=== PATIENT | female | born 1935 | race Caucasian/White ===

== ENCOUNTER 2017-05-16 19:21 | Inpatient (IN) | payer MEDICARE, MEDICAID ==
[~2017-05-16] VITALS: Ht 157.5 cm; Wt 70.3 kg
--- NOTE | ~2017-05-16 | PR ---
[place], [place] PROGRESS NOTE NAME: SHIREEN KELSEY UNIT #: [id number] ROOM: 311 DOCTOR: ODALIS GONZALEZ MD BIRTHDATE: [birth year] DOS: 05/18/2017 CHIEF COMPLAINT: "I don't know what I am going to do about going back to that place. It is my home though I want to go back." SUMMARY OF THE VISIT: The patient was interviewed as she rested quietly in bed. She reported to me that she did not want to get out of bed and get breakfast that she was not a morning person. She continued to focus on all of the negative things that were happening at [facility] and was upset that that particular staff member is tormenting her. She, however, does not see any way around returning there and is very specific that is that 1 particular staff member that seems to be tormenting her. She remains grossly paranoid and delusional and depressed. She is tolerating the medicines well and has been compliant here with the medication regimen. MENTAL STATUS: She is alert and oriented with some time gaps. Mood does still seem to be depressed with anxious overtones and she voices significant paranoia. PLAN: I will go ahead and increase her Risperdal from 0.5 mg twice a day to 0.5 mg in the morning and 1 mg at bedtime. Maintain the Remeron at 15 mg at bedtime. Continue to engage in individual and pederson milieu activity with the plan ultimately to return back to [facility]. ODALIS GONZALEZ MD CM:PNTRANS [id number] ODALIS GONZALEZ MD 05/19/17 0445 interface
--- NOTE | ~2017-05-16 | WRIGHTHP ---
[place], [place] PATIENT HISTORY AND PHYSICAL EXAM NAME: SHIREEN KELSEY UNIT #: [id number] ROOM: 311 DOCTOR: ODALIS GONZALEZ MD BIRTHDATE: [birth year] DOS: 05/17/2017 INITIAL PSYCHIATRIC EVALUATION CHIEF COMPLAINT: "That one worker has it in for me. It has been like that ever since I moved into that place." HISTORY OF PRESENT ILLNESS: This is an 81-year-old white female who is a resident of [facility]. The patient is admitted now due to worsening depression with psychotic features. The patient has become very paranoid and believes that a select female staff member is deliberately trying to hurt her. She states that the staff member lives there at the facility in an apartment above her and has been doing things deliberately to hurt her including piping in noxious gas that is making her feel sick. At one point, she is said it was poisonous gas and then she retracted that. The patient has not been sleeping well at night because she is fearful. She has not been eating or attending to her ADLs. She is admitted now to rule out organic factors and to attempt to stabilize on medication. PAST MEDICAL HISTORY: Remarkable for allergies to SULFA AND PENICILLIN. Past medical history also remarkable for hypertension, hyperlipidemia, hypothyroidism, seasonal allergies and emphysema. MENTAL STATUS: The patient is alert and oriented to person, place and approximate to time. Mood is depressed with anxious overtones. There is also a significant amount of paranoia and delusions. Memory is relatively intact. DIAGNOSIS: Major depression, recurrent with psychotic features. PLAN: I have already started her on Remeron 15 mg at bedtime. I will start risperidone 0.5 mg twice a day. Screening examination showed her to have a low vitamin D level, so I will augment with vitamin D, engage in individual and pederson milieu activity, returning home when stable. [place], [place] PATIENT HISTORY AND PHYSICAL EXAM NAME: SHIREEN KELSEY UNIT #: [id number] ROOM: 311 DOCTOR: ODALIS GONZALEZ MD BIRTHDATE: [birth year] ODALIS GONZALEZ MD CM:HISPHYS:PATIENT HISTORY AND PHYSICAL EXAMINATION [id number] ODALIS GONZALEZ MD 05/17/17 1535 interface
--- NOTE | ~2017-05-16 | DS ---
[place], [place] DISCHARGE SUMMARY NAME: SHIREEN KELSEY UNIT #: [id number] ROOM: 311 DOCTOR: ODALIS GONZALEZ MD BIRTHDATE: [birth year] DOS: 05/21/2017 CHIEF COMPLAINT: "That one worked has it in for me, it has been like that ever since I moved into the place." HISTORY OF PRESENT ILLNESS: This is an 81-year-old white female who is a resident of [facility]. The patient is admitted now due to worsening depression with psychotic features. The patient has become very paranoid and believes that a select female staff member is deliberately trying to hurt her. She states that the staff member lives there at the facility in an apartment above her, no such apartment exists. She also feels that they are piping in noxious poisonous gas in her apartment to make her feel sick. She has reacted to this poisonous gas in the past. She has not been sleeping well at night because she is so fearful. She has been episodically noncompliant with her medications as well. She is admitted now to rule out organic factors in attempt to stabilize on medication with the ultimate plan to return back to [facility]. PAST MEDICAL HISTORY: Remarkable for allergies to SULFA and PENICILLIN. She also has a history of hypertension, hyperlipidemia, hypothyroidism, seasonal allergies and emphysema. SUMMARY OF HOSPITAL COURSE: The patient was started on Remeron SolTab 15 mg at bedtime and Risperdal 0.5 mg twice a day was added to combat the psychosis. The patient was actually compliant with her medicines here in the hospital. She did have a rapid stabilization in her sleep. Some of the paranoia persisted, but overall there was a steady trend in improvement. She was able to engage readily in individual and group activities. She voiced positive plans for the future and she was very anxious to return back to her apartment feeling that she could put up with what has been going on and ignore the behavior. This is in rodrigues contrast to admission when she felt that she was not able to ignore it. She convincingly denied suicidal, homicidal or self-injurious thoughts as well as convincingly denying any type of side effects from the medicines themselves. MENTAL STATUS AT DISCHARGE: The patient is alert and oriented to person, place and time. Mood is strongly trending towards euthymia. Affect is much more appropriate. There is no symptom suggestive of sadie or hypomania; likewise there are no overt auditory or visual hallucinations. No delusions, no paranoia. Short, intermediate and long-term memories are fully intact. FINAL DIAGNOSES: Major depression, recurrent with psychotic features. PLAN: All of her prescriptions have been printed and will be sent with her. She is returning to [facility]. [place], [place] DISCHARGE SUMMARY NAME: SHIREEN KELSEY UNIT #: [id number] ROOM: [facility] DOCTOR: ODALIS GONZALEZ MD BIRTHDATE: [birth year] ODALIS GONZALEZ MD CM:DISCHARG 4 7 ODALIS GONZALEZ MD 05/21/17916 interface
--- NOTE | ~2017-05-16 | PR ---
[place], [place] PROGRESS NOTE NAME: SHIREEN KELSEY UNIT #: [id number] ROOM: 311 DOCTOR: ODALIS GONZALEZ MD BIRTHDATE: [birth year] DOS: 05/19/2017 CHIEF COMPLAINT: "Do I get to go home, I need to take care of my bird, no one can take care of my bird like I can." SUMMARY OF THE VISIT: The patient was interviewed as she was attending to her ADLs in her room. She stopped and engaged readily in conversation. She was fixated on being able to leave. When I did tell her that I was concerned for her returning to a situation in which she was so fearful, she looked rather perplexed and bewildered at me and on the contrary stated that there is only 1 person that has her mildly upset there and that she loves the facility and cannot wait to return home. This seems to be lessening from her initial stance that she was being tortured repeatedly by multiple sources at the particular assisted living. She has been compliant with her medication and we may be seeing some positive effects from the medicines already. She did report slightly better sleep with the current medication regimen as well and notes no somnolence or other side effects this morning. MENTAL STATUS: She is alert and oriented to person, place and time. Mood does seem to be trending towards euthymia. Affect is more appropriate. The paranoia seems now to be dissipating and lessening towards one particular source. There are no overt auditory or visual hallucinations. No delusions other than the paranoia are noted. For the most part, memory is intact. PLAN: I will maintain her current dose of Remeron and Risperdal. Continue to monitor for risk, benefit, engage in individual and pederson milieu activity with the plan to return to when stable. ODALIS GONZALEZ MD CM:PNTRANS [id number] ODALIS GONZALEZ MD 05/19/17 1238 interface
--- NOTE | 2017-05-16 19:50 | NUR ---
DR GONZALEZ NOTIFIED OF ADMISSION BEING EN ROUTE FROM [facility] WITH ORDERS RECEIVED.
[2017-05-16 20:30] VITALS: BP 150/80
[2017-05-16] MEDS ORDERED: REMERON15 M2 PO (21:00)
[2017-05-16 21:19] LABS: BILIRUBIN NEGATIVE (NEGATIVE); BLOOD NEGATIVE (NEGATIVE); CLARITY SL CLOUDY (CLEAR); COLOR YELLOW (YELLOW); GLUCOSE NEGATIVE (NEGATIVE); KETONE NEGATIVE (NEGATIVE); LEUKO ESTERASE TRACE (NEGATIVE); NITRITE NEGATIVE (NEGATIVE); PH 5.5 (5.0-9.0); UROBILINOGEN 0.2 E.U./dl (0.2-1.0)
[2017-05-16] MEDS ORDERED: LEVOTHYROXINE50 MCG PO (21:21)
[2017-05-16] MEDS ORDERED: DIOVAN HCT 1601 EACH PO (21:25)
[2017-05-16] MEDS ORDERED: ATORVASTATIN CA10 M1 PO (21:26)
--- NOTE | 2017-05-16 21:26 | NUR ---
URINE OBTAINED & SENT TO LAB. LAB STAFF ON UNIT AT THIS TIME DRAWING BLOOD WORK.
[2017-05-16] MEDS ORDERED: CEROVITE SENIO1 EACH PO (21:27)
[2017-05-16] MEDS ORDERED: METOPROLOL SUCC50 M2 PO (21:28)
[2017-05-16 21:29] LABS: BACTERIA 1+; EPITHELIAL CELLS 0-2
[2017-05-16] MEDS ORDERED: SYMB160 PO (21:30)
[2017-05-16] MEDS ORDERED: POTASSIUM CHLO20 ME3 PO (21:31)
[2017-05-16] MEDS ORDERED: ROBITUSSIN DM 101 OZ PO (21:36)
[2017-05-16] MEDS ORDERED: Zofran4 MG PO (21:37)
[2017-05-16] MEDS ORDERED: DOCUSOFT-S100 MG PO (21:39)
[2017-05-16] MEDS ORDERED: PROAIR HFA8.5 GM INH (21:41)
[2017-05-16] MEDS ORDERED: PHAZYME180 MG PO (21:44)
[2017-05-16] MEDS ORDERED: CLARITIN10 MG PO (21:44)
--- NOTE | 2017-05-16 21:44 | NUR ---
SHIREEN KELSEY a 81 year old F admitted via wheel chair with 1 male staff from [employer] [facility] from [email or web address] as a voluntary admission per legal JOSE DANIEL CHAPA GOVERNOR Arrived on unit at 2024. ALLERGIES: PCN,SULFA,CODEINE,IVP DYE,PHOSPHATE,CLARITIN-D ALBUTEROL. Vital signs are: 98.7-85-18 150/80 A search was conducted and hazardous articles were removed. Client was oriented to the unit. DEEPAK VILLEGAS
[2017-05-16] MEDS ORDERED: TYLENOL325 M1 PO (21:46)
[2017-05-16] MEDS ORDERED: ARTIFICIAL TEA1 EACH OP (21:47)
[2017-05-16] MEDS ORDERED: MOM30 M1 PO (21:48)
[2017-05-16] MEDS ORDERED: MAALOX ADVANCE355 M1 PO (21:48)
[2017-05-16 22:00] LABS: BASO # 0.1 10*3/uL (0.0-0.1); BASO % 0.8 % (0.0-1.0); EOS # 0.5 10*3/uL (0.0-0.4); EOS % 6.7 % (1.0-4.0); HEMATOCRIT 40.9 % (37.0-47.0); HEMOGLOBIN 13.8 g/dl (12.0-16.0); LYMPH # 1.5 10*3/uL (1.3-4.4); LYMPH % 18.7 % (27.0-41.0); MEAN CELL VOLUME 94.7 fl (81.0-99.0); MEAN CORPUSCULAR HGB 31.9 pg (27.0-31.0); MEAN CORPUSCULAR HGB CONC 33.7 g/dl (33.0-37.0); MEAN PLATELET VOLUME 8.7 fl (9.6-12.3); MONO # 0.8 10*3/uL (0.1-1.0); MONO % 9.7 % (3.0-9.0); NEUT # 5.1 10*3/uL (2.3-7.9); NEUT % 63.8 % (47.0-73.0); PLATELET COUNT AUTOMATED 295 10*3/uL (130-400); RED BLOOD COUNT 4.32 10*6/uL (4.10-5.10); RED CELL DISTRI WIDTH 12.4 % (0-14.5); WHITE BLOOD COUNT 7.9 10*3/uL (4.8-10.8)
--- NOTE | 2017-05-16 22:00 | NUR ---
DR Torie JOLE IS COVERING FOR DR HARVEY. NOTIFIED OF ADMISSION. MEDICATION REC IS READY FOR REVIEW.
[2017-05-16 22:20] LABS: ALBUMIN 3.7 gm/dl (3.1-4.5); ALKALINE PHOSPHATASE 76 U/L (45-117); BUN 14 mg/dl (7-24); CHLORIDE 102 mmol/L (98-107); CREATININE 0.93 mg/dL (0.55-1.02); POTASSIUM 4.2 mmol/L (3.5-5.1); SGOT/AST 16 IU/L (3-35); SGPT/ALT 19 U/L (12-78); SODIUM 140 mmol/L (136-145); TOTAL PROTEIN 8.1 gm/dL (6.4-8.2)
[2017-05-16 22:28] LABS: THYROID STIM HORMONE (HS) 0.892 uIU/ml (0.358-4.75)
[2017-05-16 22:30] LABS: VITAMIN D, 25-HYDROXY 25.7 ng/mL (30-100)
--- NOTE | 2017-05-16 23:00 | NUR ---
PT DID NOT WANT TO TAKE ANY MEDICATION TONIGHT. STATED THAT SHE WOULD SPEAK TO THE DR IN THE AM. PT IS ALERT & ORIENTED X3. CO-OPERATIVE. PT DOES VOICE PARANOID FEELINGS BUT STATED THAT SHE IS UPSET BECAUSE SHE FEELS AN AIDE NAMED LUCIANO IS TAKING HER THINGS & SHE HAS HAD IT OUT FOR HER SINCE SHE STARTED LIVING THERE ABOUT 4 YEARS AGO. STATED THAT LUCIANO HAS A CHILD & STAYS AT THE FACILITY ALSO & IT IS DIFFICULT FOR HER TO PROVE ANYTHING BECAUSE SHE DOESNT SEE HER TAKE THINGS BUT SHE JUST FEELS IT IS HER & LUCIANO IS THE DAUGHTER OF ONE OF THE PEOPLE THAT RUNS THE PLACE. DENIES SENSORY DISTURBANCE & NONE IS EVIDENT. PT ALSO STATED THAT SHE HOPES HER DAUGHTER IS HAPPY BECAUSE SHE HAS BEEN TRYING "TO PUT ME AWAY FOR AWHILE". PT HAS BEEN CO-OPERATIVE. ATE HS SNACK. STATED THAT SHE USUALLY DOESNT GO TO BED UNTIL ABOUT 2:30-3:00 AM & SHE STAYS UP & WATCHES TV. PT IS PRESENTLY SITTING IN THE QUIET ROOM LOOKING AT MAGAZINES QUIETLY.
--- NOTE | 2017-05-17 00:16 | NUR ---
24 HR chart check completed.
[2017-05-17 00:33] VITALS: BP 150/80
--- NOTE | 2017-05-17 06:18 | NUR ---
DR MEERA VIRK ON UNIT TO SEE PT FOR MEDICAL MANAGEMENT.
--- NOTE | 2017-05-17 07:02 | NUR ---
PT HAS REMAINED AWAKE THROUGHOUT THE ENTIRE SHIFT & HAS SAT QUIETLY IN THE QUIET ROOM LOOKING AT MAGAZINES. PT REQUESTED & MEDICATED WITH TYLENOL 325MG PO THIS AM FOR C/O H/A. RATED PAIN 10/16.
--- NOTE | 2017-05-17 07:45 | NUR ---
PRN TYLENOL EFFECTIVE, NO FURTHER COMPLAINTS OF HEADACHE.
[2017-05-17 08:02] VITALS: BP 145/70
--- NOTE | 2017-05-17 11:19 | NUR ---
CHAPIS spoke with the [facility] admin., Mayela. They will take pt. back if med's get adjusted and pt. "not" as paranoid and accusatory. WE would prefer however that pt. be placed at [facility] due to her not taking her med's and they have a Nurse 29/01. Spoke with dtr, Lachelle batista who states that she wants her "mom" to return to and not go to a NH. Lachelle states that her "mom" could no longer take care of herself and home and that's why they sold her house and moved her into . Lachelle states that her "mom" has done well there, but the paranoia has gotten worse in the last few months. Lachelle states that she wants her mom to get "better" but its hard to visit with her because of her paranoia. pt dtr denies that she wants her "mom" in a NH. SW encouraged dtr. to speak with WE and let them know she does not want her "mom" in a NH and to return there. pt. also states she wants to go back to her home at . CHAPIS did discuss concerns about pt. stating that a staff member "Dyan" has been taking her things and Mayela states, that Dyan does not interact with pt. now because of the accusations and before Dyan it was an aide named "Raegan". Dr. oRbertson did state today that he believes this is based upon "delusions", not reality. Mayela did also state that pt. is being cared for.
--- NOTE | 2017-05-17 11:45 | NUR ---
PATIENT IS ALERT TO PERSON, PLACE, TIME AND SITUATION WITH CONFUSION. MOOD IS DEPRESSED. DENEIS ANY HALLUCINATIONS, DELUSIONS, HI/SI OR PAIN. INDEPENDANT WITH ACTIVITIES OF DAILY LIVING, AMBULATES WITH WALKER. APPETITE IS GOOD WITH ADEQUATE FLUIDS. CONTINENT OF BOWEL AND BLADDER. MEICATION COMPLIANT WITH EDUCATION PROVIDE. PARTICIPATES IN GROUP SESSION AND INTERACTIVE WITH STAFF AND OTHER PATIENTS. Q 15 MINUTE SAFETY CHECKS. CONTINUE TO MONITOR BEHAVIORS, MOOD, REDIRECT AND PROVIDE ONE ON ONE NEEDED.
--- NOTE | 2017-05-17 11:48 | NUR ---
Goals,Exercise and Trivia Patient was in attendence for approximately 3 quarters of the group. while in attendence patient actively participated. During group patients mood was upbeat joining in group and interacting with others, without limitations
--- NOTE | 2017-05-17 12:16 | NUR ---
PHYSICAL THERAPY PAtient evaluated on 3, full evaluation to follow. Continue with PT as per plan of care with fall, unit three and acute debility precautions. Return to prior living facility with PT prn. PAtient is moderate complexity via chart review, tests and evaluation: 97237. Thank you for this referral. Marii card,PT
--- NOTE | 2017-05-17 13:57 | NUR ---
Occupational Therapy evaluation completed this date on 3N with full eval to follow. Precautions include 3N, ww use, low complexity level 84885. Recommend no further OT at this time after evaluation. Patient demonstrates independence in self care, functional mobility with wh walker. Recommend return to [facility] upon d/c from [facility]. Thank you for this referral. Tiffany Sams OTR/l
[2017-05-17 20:17] VITALS: BP 142/84
--- NOTE | 2017-05-18 01:10 | NUR ---
PT ORIENTED X3. PT COMPLAINED OF NO PARANOID DELUSIONS REGARDING THEFT OF HER BELONGINGS DURING THIS SHIFT. PT PLEASANT, SOCILAIZED WELL WITH PEERS, AND MEDICATION COMPLIANT. NURSE ENCOURAGED PT TO VOICE ANY EMOTIONS REGARDING THIS ADMISSION TO WHICH SHE REPLIED "I FEEL FINE." AFFECT APPROPRIATE TO SIUATION. NO FIXATION ON MEDICATIONS NOTED. PT DENIES SI/HI, HALLUCINATIONS, OR DELUSIONS. CONTINUE TO MONITOR FOR CHANGES IN BEHAVIOR. REFER TO FLOWSHEET FOR ADDITIONAL INFO.
--- NOTE | 2017-05-18 03:06 | NUR ---
24HR CHART CHECKS COMPLETE
--- NOTE | 2017-05-18 06:13 | NUR ---
PT SLEPT >8HRS, UNINTERRUPTED.
[2017-05-18 08:48] VITALS: BP 101/62; BP 120/78
--- NOTE | 2017-05-18 08:54 | NUR ---
05/17/17 Afternoon Coping with various feelings/Emoji face suncatcher Patient did not attend group. Patient refused saying she had not slept in days and wanted to sleep. Patient encouraged to join group if she felt better
--- NOTE | 2017-05-18 08:58 | NUR ---
CHAPIS spoke with pt. pt. wants to return to [facility], worried about her bird, SW assurred her that her bird is being "taken care of" per staff at .
--- NOTE | 2017-05-18 10:04 | NUR ---
PT IS ALERT AND ORIENTED TO PERSON, PLACE, TIME AND SITUATION. MEMORY APPEARS INTACT. RESPIRATIONS EASY ON ROOM AIR. MOOD IS DEPRESSED, AFFECT IS APPROPRIATE. SPEECH IS WNL AND COHERENT, ABLE TO MAKE NEEDS KNOWN WITHOUT DIFFICULTY. PT DENIES SI/HI. PT DENIES HALLUCINATIONS, PT APPEARS FIXATED ON SERVING SIZES OF MEALS AT THE ASSISTED LIVING FACILITY AND WHEN QUESTIONED REGARDING PT FEELING ANXIOUS OR IF SOMETHING BAD WERE TO HAPPEN TO HER SHE STATES "WELL WHEN ALL I GET IS THAT LITTLE PIECE OF CHICKEN, THAT'S A PROBLEM AND I'M AFRIAD." PT CALM AND COOPERATIVE, APPEARS SLIGHTLY ANXIOUS, PT RESTING IN ROOM AT THIS TIME. MEDICATION COMPLIANT, MED EDUCATION PROVIDED. PT CONTINUES ON PO CIPRO FOR +UTI, PT DENIES S/S UTI. PT AMBULATORY, GAIT STEADY WITH USE OF WHEELED WALKER, INDEPENDENT WITH ADLS, FEEDS SELF, GOOD APPETITE WITH ADEQUATE FLUID INTAKE. NO DISTRESS NOTED. Q15 MIN SAFETY CHECKS MAINTAINED, REFER TO [facility] FLOWSHEET FOR SPECIFIC MONITORING.
--- NOTE | 2017-05-18 10:32 | NUR ---
DR. HARVEY, DR. CAMPOS AND DR. SANCHEZ HERE TO SEE PT AT THIS TIME, MADE AWARE OF UC RESULTS. JARETT Norman/Snehal.
--- NOTE | 2017-05-18 11:31 | NUR ---
Goals/exercise/Reminiscing Patient did not attend group this morning. Patient was encouraged to join but refused saying she was tired and wanted to take a nap.
[2017-05-18 20:05] VITALS: BP 97/65
--- NOTE | 2017-05-19 04:53 | NUR ---
24 HR chart check completed.
--- NOTE | 2017-05-19 05:50 | NUR ---
PT SLEPT FOR MORE THAN 10 HOURS THIS SHIFT. MEDICATION COMPLIANT. Q15 MINUTE CHECKS MAINTAINED. PT ISOLATIVE AND WITHDRAWN AND DEPRESSED. MEDICATION COMPLIANT. SEE U FLOWSHEET FOR SPECIFIC MONITORING. NO S/S OF DISTRESS NOTED. NO C/O PAIN.
--- NOTE | 2017-05-19 07:11 | NUR ---
PT REFUSED AM MEDS. PT STATED TO PUT THEM IN THE DOORWAY AND LEAVE. EXPLAINED TO PT WE CAN NOT LEAVE MEDICATIONS IN THE DOORWAY DUE TO HAVING OTHER WANDERING PTS THAT MAY INGEST THE MEDICATIONS. PT STATED TO LOCK THE DOOR THEN. EXPLAINED TO PT SHE IS IN THE HOSPITAL AND WE CAN NOT LOCK THE DOOR. PT THEN REFUSED THE MEDS.
[2017-05-19 07:51] VITALS: BP 117/52
--- NOTE | 2017-05-19 11:51 | NUR ---
DR. HARVEY AND DR. MARTINEZ ON UNIT TO SEE PT AT THIS TIME, MADE AWARE OF URINE CULTURE RESULTS, DR. HARVEY STATES NO NEED FOR FURTHER TREATMENT.
--- NOTE | 2017-05-19 16:04 | NUR ---
PT IS ALERT AND ORIENTED TO PERSON, PLACE, APPROXIMATE TIME. SOME CONFUSION NOTED AT TIMES. MEMORY APPEARS INTACT. RESPIRATIONS EASY ON ROOM AIR. MOOD IS STABLE, AFFECT IS APPROPRIATE. SPEECH IS WNL AND COHERENT, ABLE TO MAKE NEEDS KNOWN WITHOUT DIFFICULTY. PT DENIES SI/HI. PT DENIES HALLUCINATIONS, NO RESPONSE TO INTERNAL STIMULI NOTED. NO PARANOIA/DELUSIONS NOTED. MEDICATION COMPLIANT WITHOUT DIFFICULTY. PT ISOLATIVE TO ROOM A MAJORITY OF THE SHIFT, RESTING IN BED QUIETLY. PT IS AMBULATORY, GAIT STEADY WITH ASSISTANCE OF WHEELED WALKER. PT IS INDEPENDENT WITH ADLS, CONTINENT OF BOWEL AND BLADDER. FEEDS SELF, DISPLAYS GOOD APPETITE WITH ADEQUATE FLUID INTAKE NOTED. NO DISTRESS NOTED. Q15 MIN SAFETY CHECKS MAINTAINED, REFER TO [facility] FLOWSHEET FOR SPECIFIC MONITORING.
[2017-05-19 20:00] VITALS: BP 118/56
--- NOTE | 2017-05-20 00:20 | NUR ---
24 HR chart check completed.
--- NOTE | 2017-05-20 06:49 | NUR ---
PT HAS BEEN OBSERVED ON Q 15 MIN CHECKS & HAS SLEPT PAST 2214 WITH 1 BRIEF AWAKENING. REFUSED COZARRE THIS AM BUT TOOK SYNTHROID.
[2017-05-20 07:48] VITALS: BP 116/67
--- NOTE | 2017-05-20 10:10 | NUR ---
DR. ALEX AND DR. MARTINEZ HERE TO SEE PT AT THIS TIME.
--- NOTE | 2017-05-20 16:37 | NUR ---
PT IS ALERT AND ORIENTED TO PERSON, PLACE, APPROXIMATE TIME. MEMORY APPEARS INTACT. EPISODIC CONFUSION NOTED AT TIMES, ALTHOUGH PT HAS BEEN APPROPRIATE THOUGHOUT THE SHIFT. RESPIRATIONS EASY ON ROOM AIR. MOOD IS STABLE, AFFECT IS BROAD RANGE AND APPROPRIATE. SPEECH IS WNL AND COHERENT, ABLE TO MAKE NEEDS KNOWN WITHOUT DIFFICULTY. PT DENIES SI/HI. PT DENIES HALLUCINATIONS, NO RESPONSE TO INTERNAL STIMULI NOTED. PT REPORTS FEELINGS OF PARANOIA AT HER NURSING FACILITY AND STATES "THERES A GIRL THERE I DON'T LIKE AND SHE STEALS MY THINGS. THE BEST WAY TO STAY AWAY FROM HER IS TO STAY IN BED." PT IS CALM AND COOPERATIVE, INTERACTIVE WITH STAFF AND PEERS. AMBULATORY, GAIT STEADY WITH ASSISTANCE OF WHEELED WALKER. PT IS CONTINENT OF BOWEL AND BLADDER, ATTENDS TO ADLS INDEPENDENTLY, FEEDS SELF, DISPLAYS GOOD APPETITE WITH ADEQUATE FLUID INTAKE NOTED. NO DISTRESS. Q15 MIN SAFETY CHECKS MAINTAINED, REFER TO [facility] FLOWSHEET FOR SPECIFIC MONITORING.
[2017-05-20 20:13] VITALS: BP 116/78
--- NOTE | 2017-05-20 21:13 | NUR ---
24 HR chart check completed.
--- NOTE | 2017-05-20 22:00 | NUR ---
REFUSED HS RISPERDAL. DID TAKE HS REMERON. STATED THAT SHE DOESN'T LIKE TO TAKE THAT MANY PILLS AT ONE TIME.
--- NOTE | 2017-05-21 05:20 | NUR ---
PT HAS BEEN OBSERVED ON Q 15 MIN CHECKS & HAS SLEPT PAST 2230 WITH 2 BRIEF AWAKENINGS.
--- NOTE | 2017-05-21 06:26 | NUR ---
REFUSED AM COZARR & STATED SHE DIDNT WANT TO TAKE IT UNTIL AFTER BREAKFAST.
[2017-05-21] MEDS ORDERED: MIRTAZAPINE15 M2 PO (07:53)
[2017-05-21] MEDS ORDERED: RISPERDAL M-TA0.5 MG BC (07:53)
--- NOTE | 2017-05-21 07:56 | NUR ---
05/18/17 Afternoon Coping Skills Patient was in attendence as well as participated. Patient actively participated, in a very good mood
[2017-05-21 08:14] VITALS: BP 129/84
--- NOTE | 2017-05-21 08:18 | NUR ---
PHYSICAL THERAPY Veronica seen this AM 1:1 for her therapy treatment. Pt was up in the day room on this visit. All transfers were independent no LOB. Gait just CG X 1, 155' X 2, no LOB and little cueing. Working in gait balance with gait backwards, right and left side stepping, 360 turn, and stop/start gait with MIN LOAN SECRETARY X 1, no LOB. End with act Ex to bilateral LE of marching, LAQ's, ankle pumps working to pt's tolerance. Pt back up in the day room. ORACIO NAVARRETE MAINTENANCE MECHANIC.
--- NOTE | 2017-05-21 09:50 | NUR ---
CHAPIS called [facility] in regards to pt. return today. The recptionists states that SW will need to speake with the hydramatic mechanic who will need to get permission from Wheelchair Driver for pt. return. CHAPIS states the pt. is ready for d/c and pt. need need a 30 day termination notice in [facility] for pt. not to return. The front desk receptionist states she will let them know. Chapis also spoke with pt eliceo/lester Aaron in regards to pt. being d/c'ed today. CHAPIS asked Lachelle if she had found another place for her mother or had a conversation with the facility about her mother staying there. Lachelle states that she did not call them yet and pt. is to return there. CHAPIS encouraged Lachelle again to speak with the Wheelchair Driver. CHAPIS rec'd call back from Lachelle who states she spoke with the Wheelchair Driver, Mayela who states that pt. has to go to [facility] [place] because she cannot return to bbecause she does not take her medicine there. CHAPIS let Lachelle know that it is against the law without a notice for a pt. to be denied access back into her own home. CHAPIS let Lachelle know that she has trid to reach the facility to notify them of d/c but has not heard back yet and Lachelle states "They are not planning on calling you back because they do not want my mom back". Chapis let Lachelle know that it is illegal without a 30 day notice and that SW will need to call the [facility] to have them help facilitate the pt. returning there. At 10:00 am CHAPIS still has not rec'd call back from the facility. CHAPIS called and spoke with Pamela from the [facility], Nikki had Sw Facilitate a call between pt. and Pamela so Pamela could get permssion from the pt. to call and speak with the Wheelchair Driver at the facility. pt. gave Pamela permission. Pamela did ask the SW to contact the [facility] in regards to this issue too. Chapis called and spoke with Maria Teresa Baker in regards to pt. d/c today and that Pamela is involved with pt. being admitted back to [facility]. CHAPIS spoke with pt. and she wants to go back to her home of 4 yrs and poa also wants such placement today. SW will facilitate d/c based upon [facility] direction. Wheelchair Driver
--- NOTE | 2017-05-21 10:16 | NUR ---
Rec'd call back from Mayela, Right Of Way Maintenance Supervisor who states that pt. can return today, just this afternoon due to them having to get Dr. orders once they know what med's pt. is retruning on and then get them to the facility before pt. arrives. SW to set up transport for this afternoon.
--- NOTE | 2017-05-21 10:57 | NUR ---
NOTIFIED DR CAMPOS OF PT BEING DISCHARGED AT 3
--- NOTE | 2017-05-21 13:15 | NUR ---
Goals/exercise/Positive Thoughts & Affirmations Patient did attend group as well as participated. Patient was fixated on a person where she lives stealing from her. Patient stated it was taken care of but patient does not believe so. Patient redirected back to subject x 2.
--- NOTE | 2017-05-21 14:37 | NUR ---
pt to be d/c'ed to [facility] and [facility], Mayela at , via [facility] ambulance Service. pt.to follow up with Dr. Robertson and Dr. Beard. pt. dtrKrystle Larose notified of d/c time also.
--- NOTE | 2017-05-21 15:14 | NUR ---
Positive Self-Talk Patient refused to participated. Patient stated she was staying in bed till her son came to get her.Patient is to be discharged today.
--- NOTE | 2017-05-21 16:10 | NUR ---
CALLED AMBULANCE TO SEE WHEN THEY WAS ARRIVING DISPATCHER STATED THEY WERE RUNNING BEHIND THAT THEY WOUND GET HERE SOON THEY CAN
--- NOTE | 2017-05-21 18:19 | NUR ---
CALLED [facility] THEY ARE ON THEIR WAY
--- NOTE | 2017-05-21 19:20 | NUR ---
EMT CAME TO GET PATIENT- PT WAS COOPORATIVE, RECEIVED ALL HER PERSONAL BELONGINGS, DEISHCARGE INSTRUCTIONS AND PERSCRIPTIONS, MEDICARE PAPER, CONTINUING CARE, AND TRANSFER SHEET VSS, PT HAPPY
--- NOTE | 2017-05-22 07:40 | NUR ---
PHYSICAL THERAPY CO-SIGN I approve of the Phyical Therapy notes written above. VENKAT SAUCEDO PT
== END 2017-05-21 19:20 | disposition home or self-care (01) | DRG 885 ==
LOC: 3N 19:21
PROVIDERS: ADMIT Psychiatry & Neurology Psychiatry
DX: F33.3 Major depressive disorder, recurrent, severe with psychotic symptoms (principal); N39.0 Urinary tract infection, site not specified; J43.9 Emphysema, unspecified; E03.9 Hypothyroidism, unspecified; I10 Essential (primary) hypertension; E78.00 Pure hypercholesterolemia, unspecified; G47.00 Insomnia, unspecified; E55.9 Vitamin D deficiency, unspecified; J30.2 Other seasonal allergic rhinitis; D72.810 Lymphocytopenia; F41.8 Other specified anxiety disorders; F29 Unspecified psychosis not due to a substance or known physiological condition; Z88.2 Allergy status to sulfonamides; Z88.0 Allergy status to penicillin; Z90.49 Acquired absence of other specified parts of digestive tract; Z88.8 Allergy status to other drugs, medicaments and biological substances; Z88.6 Allergy status to analgesic agent; Z91.041 Radiographic dye allergy status; Z79.899 Other long term (current) drug therapy

== ENCOUNTER 2017-07-13 21:46 | Inpatient (IN) | payer MEDICARE, MEDICAID ==
[~2017-07-13] VITALS: Ht 160 cm; Wt 67.6 kg
--- NOTE | ~2017-07-13 | PR ---
[place], [place] PROGRESS NOTE NAME: SHIREEN KELSEY UNIT #: [id number] ROOM: 317 DOCTOR: ODALIS GONZALEZ MD BIRTHDATE: [birth year] DOS: 07/24/2017 CHIEF COMPLAINT: "That water over there in the closet, they are putting things in there, they are putting things in other things I drink." SUMMARY OF THE VISIT: The patient was interviewed once again lying in bed. She is refusing to get up, stating that she is extremely nauseated and has not been eating much for fear that she will throw up. I believe at the root of this is a delusion and that when further pressed she reported that there is water in her nightstand area that has been contaminated and that people are putting things in her food and drink. MENTAL STATUS: She is alert and oriented with time gaps. Mood does seem to be somewhat despondent and depressed and she is anxious and fretful. There does seem to be a marked delusion about being poisoned once again. Short term memory has gaps. PLAN: I will discontinue her oral Risperdal and reload her with another 12.5 mg of Risperdal Consta bringing her total dose to 25 mg every 14 days. I will also offer her Compazine 25 mg rectally every 12 hours as needed for nausea to further force the issue to see if we can get her to eat and drink. We will attempt at best to do so and also attempt to engage her in individual and pederson milieu activities, returning then to the least restrictive environment when psychiatrically stable. ODALIS GONZALEZ MD CM:PNTRANS [id number] ODALIS GONZALEZ MD 07/24/17 1151 interface
--- NOTE | ~2017-07-13 | DS ---
[place], [place] DISCHARGE SUMMARY NAME: SHIREEN KELSEY UNIT #: [id number] ROOM: 317 DOCTOR: ODALIS GONZALEZ MD BIRTHDATE: [birth year] DOS: 07/26/2017 CHIEF COMPLAINT: "I don't know how I got here." HISTORY OF PRESENT ILLNESS: This is an 81-year-old white female well known to me from her previous stay at the [facility] as well as her stay at [facility]. The patient was sent to [facility] Emergency Room to be evaluated. She has been selectively noncompliant with her medication and refusing multiple aspects of care. She believes that her food is being poisoned and that people are piping poisonous gas into her room. Because of her significant paranoia and the fact that she has been noncompliant with multiple medications, she is being evaluated here to rule out organic factors, to stabilize on medication and to determine the least restrictive environment. PAST MEDICAL HISTORY: Remarkable for a lengthy history of major depression with psychotic features as well as COPD, hypertension, hyperlipidemia, hypothyroidism and allergic rhinitis. SUMMARY OF HOSPITAL COURSE: The patient was admitted to the unit where she was started on Risperdal M-Tab. She tolerated this well over the course of time and was eventually loaded with Risperdal Consta 12.5 mg injection at that time. Remeron, SolTab was utilized for depression. Additionally, she was found to have increasing confusion, so she was started on Exelon patch, which was rapidly titrated up to its maximum dose of 13.3 mg. The patient continued to exhibit marked delusions and episodically refused her potassium. She later had a period of time where she refused to eat, stating that the water was being poisoned and that people were putting things in her food and fluids here. She did require a secondary loading dose of Risperdal Consta of another 12.5 mg bringing her total 2-week dose to 25 mg IM every 2 weeks. She tolerated the Risperdal Consta well. There were no extrapyramidal symptoms, tardive dyskinesia, sedation or somnolence. She had improved sufficiently to be able to be returned to a long-term care facility. The hope was that she would go there for a less than 30-day rehab stay allowing the medication to further decrease her psychotic symptoms and ultimately then be able to return back to [place]. MENTAL STATUS AT DISCHARGE: The patient was alert and oriented to person, place, but did have time gaps. Mood did seem to be trending towards euthymia. Affect was more appropriate. There are no symptoms of sadie or hypomania. There still remains some residual paranoia. Short-term memory had mild gaps. FINAL DIAGNOSES AT DISCHARGE: Major depression, recurrent with psychotic features and Alzheimer's dementia. DISPOSITION: All of her prescriptions have been printed and will be sent with her. She will return to a long-term care facility for further treatment. [place], [place] DISCHARGE SUMMARY NAME: SHIREEN KELSEY UNIT #: [id number] ROOM: 317 DOCTOR: ODALIS GONZALEZ MD BIRTHDATE: [birth year] ODALIS GONZALEZ MD CM:DISCHARG [phone] ODALIS GONZALEZ MD 07/26/17 0851 interface
--- NOTE | ~2017-07-13 | PR ---
[place], [place] PROGRESS NOTE NAME: SHIREEN KELSEY UNIT #: [id number] ROOM: 317 DOCTOR: Vi MCGHEE,CONCHITA BIRTHDATE: [birth year] DOS: 07/21/2017 PSYCHIATRIC PROGRESS NOTE SUBJECTIVE: The patient seen and spoke with the staff. Per staff, the patient slept well, but complaining of nausea for the last couple of days and medicine team is involved. The patient was in her room. She said that she is doing "much better." She said that she wants to go home. It should be noted that the patient actually refused her medication this morning and did not want to take it. MENTAL STATUS EXAMINATION: The patient was pleasant and cooperative, described her mood as "okay." Affect, mood congruent. Thought process is with confabulation. She denied auditory or visual hallucination. No delusions or paranoia noted. She denied suicidal ideation, intent or plan. She also denied homicidal ideation, intent or plan. ASSESSMENT: 1. Major depressive disorder, recurrent with psychotic feature. 2. Dementia with delusion. PLAN: 1. Continue current medication and care. 2. Continue redirection. 3. Consult medical team for nausea issues. CONCHITA MCGHEE MD CM:YENNI 15 [phone] Vi MCGHEE 07/22/17309 interface
--- NOTE | ~2017-07-13 | PR ---
[place], [place] PROGRESS NOTE NAME: SHIREEN KELSEY UNIT #: [id number] ROOM: 317 DOCTOR: ODALIS GONZALEZ MD BIRTHDATE: [birth year] DOS: 07/23/2017 CHIEF COMPLAINT: "Oh, please help get me better." SUMMARY OF THE VISIT: The patient was interviewed as she was resting in bed. She continued to complain of somatic issues, stating that her stomach is rumbling and that she had a bout of throwing up not too long ago. Nurses report that this was several days ago and since that time she has been hesitant to attempt to eat and has eaten very little over the last 36 to 48 hours. She continues to complain of just not feeling well. She denies depression or any other symptoms, but of note, she has not asked about her bird now for several days. MENTAL STATUS: She is alert and oriented with some time gaps. Mood does seem to be improving. Affect is more appropriate. There are no symptoms of sadie or hypomania. There are no overt auditory or visual hallucinations. No delusions, no paranoia. Short term memory has gaps, otherwise she is intact. PLAN: At this point, I will simplify her drug regimen and discontinue her a.m. dose of Risperdal. She has the Risperdal Consta now on board and I will utilize this given her compliance issues. Family is to be looking for alternative placement, so she can go to a 30-day stay and then depending on her improvement or lack of, we will determine what then happens with her continued length of stay. ODALIS GONZALEZ MD CM:PNTRANS [id number] ODALIS GONZALEZ MD 07/23/17 1000 interface
--- NOTE | ~2017-07-13 | PR ---
[place], [place] PROGRESS NOTE NAME: SHIREEN KELSEY UNIT #: [id number] ROOM: 317 DOCTOR: Vi MCGHEE,CONCHITA BIRTHDATE: [birth year] DOS: 07/22/2017 SUBJECTIVE: Patient seen and spoke with the staff. Per staff, patient refused her morning potassium and Cozaar, very somatic, refused breakfast this morning also. Patient was pleasant and cooperative. She was in her bed. When I asked her why she did not take the potassium, she said that she does not like it, that bothers her, but did not say how. She said that her mood is good. She is taking all of her medication. Did not express any other problems or concerns. MENTAL STATUS EXAMINATION: Patient was pleasant and cooperative. Described her mood as "good." Affect, flat, constricted. Thought process is with confabulation. She denied auditory or visual hallucination. No delusion or paranoia noted. She denies suicidal ideation, intent or plan. She also denied any homicidal ideation, intent or plan. Insight and judgment impaired. ASSESSMENT: 1. Major depressive disorder, recurrent with psychotic feature. 2. Dementia with delusion. PLAN: 1. Continue current medication and care. 2. Continue redirection. 3. Final medication management and discharge plan by the regular team. CONCHITA MCGHEE MD CM:YENNI [phone] Vi MCGHEE 07/22/17 623 interface
--- NOTE | ~2017-07-13 | PR ---
[place], [place] PROGRESS NOTE NAME: SHIREEN KELSEY UNIT #: [id number] ROOM: 317 DOCTOR: ODALIS GONZALEZ MD BIRTHDATE: [birth year] DOS: 07/16/2017 CHIEF COMPLAINT: "You know they want my bird, don't you. I want to go home now." SUMMARY OF THE VISIT: The patient was interviewed walking in the [place]. She recognized me and engaged readily in conversation. I did try to tell her that we needed to make certain she remains compliant with her medicine and she reports that she has been compliant here. She did not tell me why she has been noncompliant at the snf. She is very fixated on leaving and when I did tell her that there is a possible issue with her returning back to the assisted living, she nodded in agreement, but then stated they are doing this on purpose, so they can get my birds, you know. She remains delusional and paranoid. MENTAL STATUS: She is alert and oriented with some time gaps. Mood does seem to be somewhat paranoid and guarded. She is suspicious and accusatory. She does have some mild short term memory gaps, but overall is fairly intact. PLAN: I will attempt to load her with Risperdal Consta 12.5 mg today. I will have Dr. Asif Rodas, psychologist, evaluate her for competency to see if the POA can kick in. We will need to get the POA's permission and if this happens, to be able to medicate her more accurately and then determine where she will be able to go. I know from talks with the assisted living facility, they are not certain if they can adequately meet her needs and they may feel that she needs more supervision than they are able to give her. We will explore these options. Engage in individual and pederosn milieu activity, returning to the least restrictive option when stable. ODALIS GONZALEZ MD CM:PNTRANS [id number] ODALIS GONZALEZ MD 07/16/17 1254 interface
--- NOTE | ~2017-07-13 | CON ---
[place], [place] REPORT OF CONSULTATION NAME: SHIREEN KELSEY UNIT #: [id number] ROOM: 317 DOCTOR: BRENDON LEYVA ED.D) BIRTHDATE: [birth year] DOS: 07/16/2017 HISTORY OF PRESENT ILLNESS: The patient is an 81-year-old female referred for competency evaluation by Dr. Gonzalez. At the present time, this patient is on the [facility]. She states she is and has 2 children. Her one daughter, Lachelle Sotelo, is her power of disease management nurse for healthcare. 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 Her family physician is Dr. Beard in [place], [place]. She is presently a resident of [facility]. 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 This patient was awake, alert and oriented to person and place. She has some difficulty with time. Her short term memory appear to be mildly impaired, although her long-term memory was fairly good. PAST MEDICAL HISTORY: Pertinent for hypertension, major depression with psychotic features, anxiety, GERD, COPD, hyperlipidemia, and hypothyroidism. MEDICATIONS: Risperdal, losartan, Remeron, hydrochlorothiazide, potassium chloride, metoprolol, atorvastatin, Synthroid, Dulera and albuterol. At the present time, this patient appears to be having difficulty in making rational and logical decisions regarding her healthcare. She is clearly not competent to make informed decisions regarding her healthcare and all decision should be made by her daughter, Lachelle Sotelo who is her healthcare power of disease management nurse. The patient had been hoarding pills and taking pills at her leisure as opposed to when she was supposed to take them when she was at the assisted living facility. She has a long history of doing this and was actually trying to do this while she was a patient at the hospital. Clearly, she is not able to understand the healthcare needs that she and has since she is not taking her medications and has significant medical and mental health problems necessitating her taking medications each day. DIAGNOSES: Major depressive disorder with psychotic features. RECOMMENDATIONS: In my opinion, all decision should be made by her healthcare power of disease management nurse who is her daughter, Lachelle Sotelo. Thank you very much for this consult. [place], [place] REPORT OF CONSULTATION NAME: SHIREEN KELSEY UNIT #: [id number] ROOM: [facility] DOCTOR: BRENDON LEYVA ED.D (DE) BIRTHDATE: [birth year] BRENDON LEYVA ED.D CM:CONSTR:REPORT OF CONSULTATION 1545 07/17/17 0215 interface ODALIS GONZALEZ MD
[~2017-07-13 21:46] MED LIST: ARTIFICIAL TEA1 EACH OP; ATORVASTATIN CA10 M1 PO; CEROVITE SENIO1 EACH PO; CLARITIN10 MG PO; DIOVAN HCT 1601 EACH PO; DOCUSOFT-S100 MG PO; DOXYCYCLINE100 M3 PO; LEVOTHYROXINE50 MCG PO; MAALOX ADVANCE355 M1 PO; METOPROLOL SUCC50 M2 PO; MIRTAZAPINE15 M2 PO; MOM30 M1 PO; PHAZYME180 MG PO; POTASSIUM CHLO20 ME3 PO; PROAIR HFA8.5 GM INH; REMERON15 M2 PO; RISPERDAL M-TA0.5 MG BC; ROBITUSSIN DM 101 OZ PO; SYMB160 PO; TYLENOL325 M1 PO; Zofran4 MG PO
[2017-07-13] MEDS ORDERED: Zofran4 MG SL (23:36)
[2017-07-13] MEDS ORDERED: VENTOLIN 02.5 MG/3 M INH (23:39)
[2017-07-13] MEDS ORDERED: ANORO ELLIPTA1 EACH INH (23:40)
[2017-07-13] MEDS ORDERED: CEPACOL SORE T1 EACH MM (23:44)
[2017-07-13] MEDS ORDERED: PHENERGAN25 M3 PO (23:46)
[2017-07-13] MEDS ORDERED: PROVENTIL HFA6.7 GM INH (23:53)
[2017-07-13] MEDS ORDERED: [UNRECOGNIZED DRUG - OTHER] PO (23:57)
[2017-07-13] MEDS ORDERED: SEROQUEL25 MG PO (23:58)
[2017-07-13] MEDS ORDERED: CELEXA20 MG PO (23:59)
[2017-07-14 01:44] VITALS: BP 151/80
[2017-07-14 02:14] VITALS: BP 151/80
[2017-07-14 05:54] LABS: ALBUMIN 3.2 gm/dl (3.1-4.5); ALKALINE PHOSPHATASE 68 U/L (45-117); BUN 10 mg/dl (7-24); CHLORIDE 107 mmol/L (98-107); CHOLESTEROL 189 mg/dL (<200); CREATININE 0.92 mg/dL (0.55-1.02); HDL CHOLESTEROL 54 mg/dl (40-60); LDL CHOLESTEROL 112 mg/dL (9-159); POTASSIUM 3.5 mmol/L (3.5-5.1); SGOT/AST 17 IU/L (3-35); SGPT/ALT 28 U/L (12-78); SODIUM 142 mmol/L (136-145); TOTAL PROTEIN 7.3 gm/dL (6.4-8.2); TRIGLYCERIDES 115 mg/dl (<150); VLDL CHOLESTEROL 23 mg/dL (6-40)
[2017-07-14 06:09] LABS: BASO % 0.6 % (0.0-1.0); EOS # 0.3 10*3/uL (0.0-0.4); EOS % 3.6 % (1.0-4.0); HEMATOCRIT 37.6 % (37.0-47.0); HEMOGLOBIN 12.6 g/dl (12.0-16.0); LYMPH # 1.9 10*3/uL (1.3-4.4); LYMPH % 27.4 % (27.0-41.0); MEAN CORPUSCULAR HGB 31.5 pg (27.0-31.0); MEAN CORPUSCULAR HGB CONC 33.5 g/dl (33.0-37.0); MEAN PLATELET VOLUME 9.1 fl (9.6-12.3); MONO # 0.9 10*3/uL (0.1-1.0); MONO % 12.3 % (3.0-9.0); NEUT # 3.9 10*3/uL (2.3-7.9); NEUT % 55.8 % (47.0-73.0); PLATELET COUNT AUTOMATED 250 10*3/uL (130-400); RED CELL DISTRI WIDTH 12.6 % (0-14.5); WHITE BLOOD COUNT 6.9 10*3/uL (4.8-10.8)
[2017-07-14 07:44] LABS: VITAMIN D, 25-HYDROXY 23.7 ng/mL (30-100)
[2017-07-14 08:14] VITALS: BP 142/65
[2017-07-14 20:00] VITALS: BP 142/74
[2017-07-15 08:20] VITALS: BP 150/78
[2017-07-15 13:41] LABS: BILIRUBIN NEGATIVE (NEGATIVE); BLOOD NEGATIVE (NEGATIVE); CLARITY CLEAR (CLEAR); COLOR YELLOW (YELLOW); GLUCOSE NEGATIVE (NEGATIVE); KETONE NEGATIVE (NEGATIVE); LEUKO ESTERASE NEGATIVE (NEGATIVE); NITRITE NEGATIVE (NEGATIVE); UROBILINOGEN 0.2 E.U./dl (0.2-1.0)
[2017-07-15 20:40] VITALS: BP 114/81
[2017-07-16 08:16] VITALS: BP 136/72
[2017-07-16 20:00] VITALS: BP 120/83
[2017-07-17 10:12] VITALS: BP 133/83
[2017-07-17 20:56] VITALS: BP 117/67
[2017-07-18 08:20] VITALS: BP 121/79
[2017-07-18 20:11] VITALS: BP 122/62
[2017-07-19 08:21] VITALS: BP 121/74
[2017-07-19 20:00] VITALS: BP 116/60
[2017-07-20 08:02] VITALS: BP 138/78
[2017-07-20 20:12] VITALS: BP 150/80
[2017-07-21 07:58] VITALS: BP 136/78
[2017-07-21 13:42] LABS: BASO % 0.4 % (0.0-1.0); EOS % 0.4 % (1.0-4.0); HEMATOCRIT 40.2 % (37.0-47.0); HEMOGLOBIN 13.7 g/dl (12.0-16.0); LYMPH # 0.5 10*3/uL (1.3-4.4); LYMPH % 8.1 % (27.0-41.0); MEAN CELL VOLUME 93.5 fl (81.0-99.0); MEAN CORPUSCULAR HGB 31.9 pg (27.0-31.0); MEAN CORPUSCULAR HGB CONC 34.1 g/dl (33.0-37.0); MEAN PLATELET VOLUME 9.1 fl (9.6-12.3); MONO # 0.8 10*3/uL (0.1-1.0); MONO % 13.4 % (3.0-9.0); NEUT # 4.4 10*3/uL (2.3-7.9); NEUT % 77.5 % (47.0-73.0); PLATELET COUNT AUTOMATED 223 10*3/uL (130-400); RED CELL DISTRI WIDTH 12.7 % (0-14.5); WHITE BLOOD COUNT 5.7 10*3/uL (4.8-10.8)
[2017-07-21 13:57] LABS: ALBUMIN 3.4 gm/dl (3.1-4.5); ALKALINE PHOSPHATASE 74 U/L (45-117); BUN 17 mg/dl (7-24); CHLORIDE 104 mmol/L (98-107); CREATININE 0.95 mg/dL (0.55-1.02); POTASSIUM 3.5 mmol/L (3.5-5.1); SGOT/AST 23 IU/L (3-35); SGPT/ALT 21 U/L (12-78); SODIUM 140 mmol/L (136-145); TOTAL PROTEIN 7.8 gm/dL (6.4-8.2)
[2017-07-21 20:00] VITALS: BP 136/66
[2017-07-22 07:52] VITALS: BP 134/74
[2017-07-22 20:00] VITALS: BP 138/76
[2017-07-23 08:26] VITALS: BP 157/89
[2017-07-23 20:00] VITALS: BP 136/69
[2017-07-24 08:19] VITALS: BP 145/85
[2017-07-24 20:28] VITALS: BP 147/70
[2017-07-25 08:26] VITALS: BP 120/82
[2017-07-25 20:00] VITALS: BP 130/62
[2017-07-26 08:11] VITALS: BP 131/61
[2017-07-26] MEDS ORDERED: RISPERDAL CONST25 MG IM (08:38)
[2017-07-26] MEDS ORDERED: MIRTAZAPINE15 M1 PO (08:38)
[2017-07-26] MEDS ORDERED: EXELON13.3 MG/21 T (08:38)
== END 2017-07-26 16:30 | disposition other institution (70) | DRG 885 ==
LOC: 3N 21:46
PROVIDERS: Psychiatry & Neurology Psychiatry
DX: F33.3 Major depressive disorder, recurrent, severe with psychotic symptoms (principal); G30.9 Alzheimer's disease, unspecified; F02.80 Dementia in other diseases classified elsewhere, unspecified severity, without behavioral disturbance, psychotic disturbance, mood disturbance, and anxiety; J43.9 Emphysema, unspecified; F23 Brief psychotic disorder; G47.00 Insomnia, unspecified; E03.9 Hypothyroidism, unspecified; E78.00 Pure hypercholesterolemia, unspecified; R11.2 Nausea with vomiting, unspecified; F41.9 Anxiety disorder, unspecified; K21.9 Gastro-esophageal reflux disease without esophagitis; J06.9 Acute upper respiratory infection, unspecified; I10 Essential (primary) hypertension; Z90.49 Acquired absence of other specified parts of digestive tract; Z87.891 Personal history of nicotine dependence; Z83.6 Family history of other diseases of the respiratory system; Z88.5 Allergy status to narcotic agent; Z88.0 Allergy status to penicillin; Z88.2 Allergy status to sulfonamides; Z88.8 Allergy status to other drugs, medicaments and biological substances; Z87.898 Personal history of other specified conditions; Z91.041 Radiographic dye allergy status; Z79.899 Other long term (current) drug therapy; Z91.14 Patient's other noncompliance with medication regimen